=== PATIENT | female | born 1970 | race Asian ===

== ENCOUNTER 2017-02-12 10:23 | Emergency (ER) | payer BC ==
[2017-02-12 10:35] VITALS: BP 147/76; PULSE 83; TEMP 98; BMI 28.0
--- NOTE | 2017-02-12 11:37 | PDOC ---
History of Present Illness - General History Source: Patient Exam Limitations: No Limitations - History of Present Illness Initial Comments: 02/12/17 12:53 The patient is a 46 year old female with significant past medical history of hyperlipidemia, lupus, and hypothyroidism who presents to the ED for right- sided chest pain that began earlier today. Patient reports she was in her usual state of health prior to going to bed last night when she woke up earlier today and noted a dull right-sided chest pain. States around 7am, while driving to work, her pain worsen and started to radiate to the right upper quadrant and right upper back/shoulder area. Unclear if breakfast made the pain worse. Denies nausea, vomiting, or diarrhea. States she never experience similar symptoms in the past. Patient also reports sometimes feeling winded with exertion, but believes this is related to her weight gain. 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 Denies h/o of cardiac disease and states she has not had a stress test in the past. The patient denies fever, chills, cough, SOB, and palpitations. The patient denies dysuria, hematuria, urgency, and frequency. Allergies: sulfamethoxazole, trimethoprim Social History: No alcohol, tobacco, or drug use reported. Past Surgical History: thyroidectomy PCP: Dr. Wright <Jahaira Glasgow - Last Filed: 02/12/17 13:07> <Boaz Qureshi - Last Filed: 02/12/17 16:13> - General Chief Complaint: Chest Pain Stated Complaint: SOB, RT CHEST PAIN Time Seen by Provider: 02/12/17 11:35 Past History <Jahaira Glasgow - Last Filed: 02/12/17 13:07> - Past Medical History Hypercholesterolemia: Yes Thyroid Disease: Yes Other medical history: LUPUS - Psycho/Social/Smoking Cessation Hx Suicidal Ideation: No Smoking History: Never smoked Information on smoking cessation initiated: No <Boaz Qureshi - Last Filed: 02/12/17 16:13> - Past Medical History Allergies/Adverse Reactions: Allergies Allergy/AdvReac Type Severity Reaction Status Date / Time sulfamethoxazole Allergy Verified 02/12/17 10:35 [From Bactrim] trimethoprim [From Bactrim] Allergy Verified 02/12/17 10:35 Home Medications: Ambulatory Orders Aspirin [ASA -] 81 mg PO DAILY 02/12/17 Simvastatin 20 mg PO DAILY 02/12/17 Review of Systems - Review of Systems Constitutional: No: Chills, Fever Respiratory: Yes: Shortness of Breath. No: Cough Cardiac (ROS): Yes: Chest Pain. No: Edema, Lightheadedness, Palpitations, Syncope ABD/GI: No: Constipated, Diarrhea, Nausea, Vomiting All Other Systems: Reviewed and Negative <Boaz Qureshi - Last Filed: 02/12/17 16:13> *Physical Exam - Vital Signs Last Vital Signs Temp Pulse Resp BP Pulse Ox 98 F 83 18 147/76 98 02/12/17 10:33 02/12/17 10:33 02/12/17 10:33 02/12/17 10:33 02/12/17 12:23 - Physical Exam Comments: 02/12/17 12:54 GENERAL: The patient is awake, alert, and fully oriented, in no acute distress. HEAD: Normal with no signs of trauma. EYES: Pupils equal, round and reactive to light, extraocular movements intact, sclera anicteric, conjunctiva clear with no pallor. ENT: Ears normal, nares patent, oropharynx clear without exudates. Moist mucous membranes. NECK: Normal range of motion, supple without lymphadenopathy, JVD, or masses. LUNGS: Breath sounds equal, clear to auscultation bilaterally. No wheeze/ crackles. HEART: Regular rate and rhythm, normal S1 and S2 without murmur or rub. ABDOMEN: Soft/nontender/nondistended. BS wnl. No guarding or rebound. No palpable masses. No hepatosplenomegaly. EXTREMITIES: Normal range of motion, no edema. No clubbing or cyanosis. No cords, erythema, or tenderness. MUSCKLOSKELETAL: Right CVA tenderness NEUROLOGICAL: Cranial nerves II through XII grossly intact. Normal speech, normal gait. PSYCH: Normal mood, normal affect. SKIN: Warm, Dry, normal turgor, no rashes or lesions noted. <Jahaira Glasgow - Last Filed: 02/12/17 13:07> - Vital Signs Last Vital Signs Temp Pulse Resp BP Pulse Ox 98 F 83 18 147/76 100 02/12/17 10:33 02/12/17 10:33 02/12/17 10:33 02/12/17 10:33 02/12/17 10:33 <Boaz Qureshi - Last Filed: 02/12/17 16:13> Heart Score/ECG Review #1 ECG reviewed & interpreted by me at: 10:33 General ECG Interpretation: Sinus Rhythm, Normal Rate (65), Normal Intervals, No acute ischemic changes <Boaz Qureshi - Last Filed: 02/12/17 16:13> ED Treatment Course - LABORATORY CBC & Chemistry Diagram: 02/12/17 12:21 02/12/17 12:21 - ADDITIONAL ORDERS Additional order review: Laboratory Results 02/12/17 12:21 Urine Color Colorless Urine Appearance Clear Urine pH 6.0 Urine Protein Negative Urine Glucose (UA) Negative Urine Ketones Negative Urine Blood Negative Urine Nitrite Negative Urine Bilirubin Negative Urine Urobilinogen Negative Ur Leukocyte Esterase Negative Urine HCG, Qual Negative 02/12/17 12:21 RBC 4.72 MCV 88.5 MCHC 33.6 RDW 13.6 MPV 8.4 Neutrophils % 69.9 Lymphocytes % 19.6 Monocytes % 9.4 Eosinophils % 0.6 Basophils % 0.5 - Medications Given in the ED: ED Medications Discontinued Medications Generic Name Dose Route Start Last Admin Trade Name Freq PRN Reason Stop Dose Admin Aspirin 162 mg 02/12/17 11:56 02/12/17 12:26 Asa - PO 02/12/17 11:57 162 mg ONCE ONE Administration <Jahaira Glasgow - Last Filed: 02/12/17 13:07> - LABORATORY CBC & Chemistry Diagram: 02/12/17 12:21 02/12/17 12:21 <Boaz Qureshi - Last Filed: 02/12/17 16:13> Medical Decision Making - Medical Decision Making 02/12/17 12:14 A portion of this note was documented by scribe services under my direction. I have reviewed the details of the note, within reason, and agree with the documentation with the following case summary and management plan written by me. 46-year-old female with history of high cholesterol, low thyroid, and lupus presents with right chest/right upper quadrant pain since this morning. Patient awoke and noticed a mild dull ache to her right chest, a breakfast and on her way to work while driving noticed that the pain worsened and now radiating to the right upper quadrant and right shoulder. Mild associated shortness of breath , but no nausea or vomiting or lightheadedness or diaphoresis. No history of postprandial abdominal pain other than stomach burning after coffee, she does experience some fatigue with exertion but attributed to weight cane. No unilateral leg pain or swelling, no other DVT risk factors. 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 Vital signs normal. Well-appearing and comfortable, no respiratory distress. Exam is nonfocal but some right CVA tenderness noted. 46-year-old female with lupus presents with right chest/right upper quadrant pain, exam is nonfocal as is the history. With a history of lupus, PE is on the differential though overall low suspicion as vital signs are normal and would otherwise clinically rule out. Rule out pneumonia or pneumothorax, rule out ACS , rule out gallbladder or renal pathology. Labs including d-dimer, urinalysis EKG, chest x-ray, right upper quadrant ultrasound Aspirin Reassess 02/12/17 15:56 labs completely within normal limits, including LFTs/UA/Trop/ddimer. CXR normal, RUQ sono normal, R kidney normal. Feels and looks well, pain improved and nearly resolved. No clear etiology but workup negative. Explained and discussed with pt, who agrees with d/c plan and f /u. Understands return criteria. <Boaz Qureshi - Last Filed: 02/12/17 16:13> *DC/Admit/Observation/Transfer - Attestations Scribe Attestion: 02/12/17 12:54 Documentation prepared by Jahaira Glasgow, acting as director medical writing for Boaz Qureshi MD, /DO. <Jahaira Glasgow - Last Filed: 02/12/17 13:07> <Boaz Qureshi - Last Filed: 02/12/17 16:13> Diagnosis at time of Disposition: Right-sided chest pain - Discharge Dispostion Disposition: HOME Condition at time of disposition: Improved - Patient Instructions Printed Discharge Instructions: DI for Atypical Chest Pain Additional Instructions: Activity as tolerated. Stay hydrated. Tylenol 1000 mg every 8 hours and/or ibuprofen 600 mg every 8 hours as needed for pain. Blood tests, an EKG, a chest x-ray, and an ultrasound showed no acute abnormalities. Continue your medications as previously prescribed by your physician. You should follow up with your primary doctor as soon as possible regarding today's emergency department visit. Return to the emergency department for any new or concerning symptoms, particularly persistent or worsening pain, difficulty breathing, fevers or chills, vomiting or bloody stool.
[2017-02-12] MEDS ORDERED: ASPIRIN 81 MG CHEWABLE TABLETS PO ONE (11:56)
[2017-02-12 12:26] LABS: BASOPHIL 0.5 % (0-2.0); EOSINOPHIL 0.6 % (0-4.5); MCH 29.7 pg (25.7-33.7); MCHC 33.6 g/dl (32.0-36.0); MEAN CELL VOLUME 88.5 fl (80-96); MEAN PLT VOLUME 8.4 fl (7.5-11.1); NEUTROPHILS 69.9 % (42.8-82.8); PLATELET COUNT 225 K/MM3 (134-434); RDW 13.6 % (11.6-15.6)
[2017-02-12 12:27] LABS: URINE APPEARANCE CLEAR; URINE BILIRUBIN NEGATIVE (NEGATIVE); URINE BLOOD NEGATIVE (NEGATIVE); URINE COLOR COLORLESS; URINE GLUCOSE (UA) NEGATIVE (NEGATIVE); URINE KETONE NEGATIVE (NEGATIVE); URINE LEUK ESTERASE NEGATIVE (NEGATIVE); URINE NITRITE NEGATIVE (NEGATIVE); URINE PROTEIN NEGATIVE (NEGATIVE); URINE UROBILINOGEN NEGATIVE E.U./dl (0.2-1.0)
[2017-02-12] MEDS ORDERED: ASPIRIN 81 MG CHEWABLE TABLETS ONE (12:30)
--- NOTE | 2017-02-12 12:39 | EKG ---
Test Reason : Blood Pressure : / mmHG Vent. Rate : 065 BPM Atrial Rate : 065 BPM P-R Int : 186 ms QRS Dur : 084 ms QT Int : 400 ms P-R-T Axes : 076 035 035 degrees QTc Int : 416 ms NORMAL SINUS RHYTHM NORMAL ECG NO PREVIOUS ECGS AVAILABLE Confirmed by JOSE HENAO MD ([id number]) on 02/12/2017 12:38:53 PM Referred By: Confirmed By:JOSE HENAO MD
[2017-02-12 12:50] LABS: INR 0.96 (0.82-1.09)
[2017-02-12 12:53] LABS: D-DIMER < 200 ng/ml (<200-235)
[2017-02-12 13:03] LABS: ANION GAP 10 (8-16); BILIRUBIN,TOTAL 0.3 mg/dL (0.2-1.0); CALCIUM 8.7 mg/dL (8.5-10.1); CO2 27 mmol/L (21-32); CREATININE 0.7 mg/dL (0.55-1.02); GLUCOSE,RANDOM 96 mg/dL (74-106); MAGNESIUM 2.1 mg/dL (1.8-2.4); SGOT/AST 19 U/L (15-37); SGPT/ALT 24 U/L (12-78); TOT PROT 8.1 g/dl (6.4-8.2)
[2017-02-12 13:06] LABS: ALK PHOS 70 U/L (45-117); TROPONIN I < 0.02 ng/ml (0.00-0.05)
== END 2017-02-12 16:45 | disposition home or self-care (01) ==
LOC: JER 10:23
DX: R07.89 Other chest pain (principal)
CPT/HCPCS: 36415; 71020-TC; 76705-TC; 80053; 81003; 82550; 83690; 83735; 84484; 84703; 85025; 85379; 85610; 93005; 93010; 99284-25